=== PATIENT | female | born 1980 | race Caucasian/White ===

== ENCOUNTER 2017-06-05 14:11 | Emergency (ER) | payer OTHER ==
[2017-06-05 14:25] VITALS: BMI 22.4
[2017-06-05 14:29] VITALS: BP 155/93
[2017-06-05 15:12] LABS: BASOPHILS # (AUTO) 0.1 X10^3/uL (0.0-0.1); BASOPHILS % (AUTO) 0.7 % (0.2-1.0); EOSINOPHILS # (AUTO) 0.1 x10^3/uL (0.0-0.2); EOSINOPHILS % (AUTO) 1.1 % (0.9-2.9); HEMATOCRIT 41.8 % (36.0-47.0); HEMOGLOBIN 13.9 g/dL (12.0-16.0); LYMPHOCYTES # (AUTO) 1.5 X10^3/uL (1.3-2.9); LYMPHOCYTES % (AUTO) 16.2 % (21.0-51.0); MEAN CORPUSCULAR HEMOGLOBIN 25.8 pg (27.0-34.0); MEAN CORPUSCULAR HGB CONC 33.2 g/dL (33.0-35.0); MEAN CORPUSCULAR VOLUME 77.8 fL (80.0-100.0); MONOCYTES # (AUTO) 0.5 x10^3/uL (0.3-0.8); MONOCYTES % (AUTO) 5.3 % (0.0-13.0); NEUTROPHILS # (AUTO) 7.3 x10^3/uL (2.2-4.8); NEUTROPHILS % (AUTO) 76.7 % (42.0-75.0); PLATELET COUNT 316 X10^3/uL (150.0-450.0); RED BLOOD COUNT 5.37 X10^6/uL (3.5-5.4); RED CELL DISTRIBUTION WIDTH 16.1 % (11.6-16.5); WHITE BLOOD COUNT 9.5 X10^3/uL (3.6-10.0)
[2017-06-05 15:27] LABS: HYPOCHROMASIA SLIGHT; MICROCYTOSIS SLIGHT; PLATELET MORPHOLOGY COMMENT NORMAL (NORMAL)
[2017-06-05 15:40] LABS: ALANINE AMINOTRANSFERASE 22 Units/L (12-78); ALBUMIN 3.5 g/dL (3.4-5.0); ALKALINE PHOSPHATASE 30 Units/L (46-116); ASPARTATE AMINO TRANSFERASE 19 Units/L (15-37); BLOOD UREA NITROGEN 14 mg/dL (7-18); CALCIUM 11.4 mg/dL (8.5-10.1); CARBON DIOXIDE 32.2 mmol/L (21-32); CHLORIDE 100 mmol/L (98-107); CREATININE 1.45 mg/dL (0.55-1.02); SODIUM 139 mmol/L (136-145); TOTAL PROTEIN 7.6 g/dL (6.4-8.2); eGFR BLACK RACES 53 (>60); eGFR NON BLACK RACES 44 (>60)
[2017-06-05 15:55] LABS: BILIRUBIN,URINE NEGATIVE (NEGATIVE); BLOOD/HEMOGLOBIN,URINE NEGATIVE (NEGATIVE); GLUCOSE, URINE NEGATIVE (NEGATIVE); KETONES,URINE NEGATIVE (NEGATIVE); LEUKOCYTE ESTERASE ,URINE 1+ (NEGATIVE); NITRITES,URINE NEGATIVE (NEGATIVE); PROTEIN,URINE NEGATIVE (NEGATIVE); UROBILINOGEN,URINE NORMAL (NORMAL)
[2017-06-05 15:56] LABS: APPEARANCE,URINE CLOUDY (CLEAR); BACTERIA,URINE TRACE /HPF (NEGATIVE); COLOR,URINE YELLOW (YELLOW); RBC,URINE 0-2 /HPF (NEGATIVE); SQUAMOUS EPITHELIAL CELL,UR RARE /HPF (NEGATIVE)
--- NOTE | 2017-06-05 15:59 | DR.SEIZA ---
HPI - Time Seen Time seen: 15:50 - Primary Care Physician Primary Care Physician: QUENTIN PALMA - HPI Comment HPI Comment: HISTORY SEIZURE DISODER. ON DILANTIN. PATIENT SAID SHE IS NOT COMPLAINT WITH MEDS. - Complaints Chief Complaint Doctors Comments: SEIZURE, LACERATION INNER UPPER LIP. Chief Complaint:: SEIZURE ACTIVE Self Treatment fo Chief Complaint: CALLED EMS. PT STATES " I TOOK TWO BOXES OF OTC COUGH AND COLD HBP. BYSTANDER STATED SHE TOOK 4 BOXES OF THE OTC MEDS." - Reviewed Nurses Notes Reviewed: Yes - Source History Provided: Patient - Mode of Arrival Mode of Arrival: EMS - Timing Onset of Chief Complaint: 06/05/17 - Duration Since Onset: Since Onset Duration: Hours - Quality Quality: Tonic-clonic - Location Location: Generalized - Context Prior to Seizure:: Normal During Seizure: LOC Immediately After Seizure: Confusion, Headache History of:: Seizure Disorder Medication Compliance: Yes - Associated Signs and Symptoms Associated Signs and Symptoms:: Headache PMH - PMH Past Medical History: Yes Past Medical History: Anxiety, Depression, Seizures Past Surgical History: Yes Surgical History: Weight Loss Surgery - Family History History of Family Medical Conditions: Yes Family Medical History: Hypertension - Social History Does patient currently use any type of tobacco product: Yes Have you used tobacco products in the last 12 months: Yes Type of Tobacco Use: Cigarettes How many years tobacco product used: 15 Does any household member use tobacco: No Alcohol Use: None Do you use any recreational Drugs:: Yes (rx) Lives With: Family Lives Where: Home - infectious screening In the last 2 months have you had wt loss of >10#?: NO Have you had fever, night sweats or hemotysis?: No Have you traveled outside the country in the last 6 months?: No Isolation: Standard ROS - Review of Systems Constitutional: Weakness, Fatigue. negative: Chills, Fever Eyes: Blurred Vision. negative: Eye Pain, Discharge ENTM: negative: Ear Pain, Nose Discharge, Nose Congestion, Throat Pain Respiratoy: negative: Moist Cough, Short of Breath, Wheezing, Hemoptysis Cardiovascular: negative: Chest Pain, Edema Gastrointestinal/Abdominal: Abdominal Pain, Diarrhea, Nausea, Vomiting. negative: Constipation Genitourinary: negative: Dysuria, Hematuria Neurological: Pre-existing Deficit, Seizure Musculoskeletal: Back Pain, Chest wall Hematologic/Lymphatic: Easy Bleeding, Easy Bruising Endocrine: Increased Thirst Unable to Obtain Due To: Altered mental status PE - Vital Signs Vitals: Temperature 98.2 F Pulse Rate [Right Brachial] 85 Pulse Rate 86 Respiratory Rate 20 Blood Pressure [Right Arm] 155/93 Blood Pressure [Left Arm] 138/96 Blood Pressure 154/88 O2 Sat by Pulse Oximetry 100 MDM - Additional Information Obtained Additional Information Obtained From: Family - Differential Diagnosis Seizure due to:: Closed Head Injury, CVA/TIA, Drug Ingestion, Hypoclacemia, Hypoglycemia, Hyponatremia, Mass lesion Course - Treatment Treatment: SEE ORDERS. IVCEREBYX IN ED WITH PO AUGMENTIN. - Education/Counseling Education/Counseling: Patient, Family, Education Educated On: Treatment, Diagnosis, Needs for Follow Up ROR - Labs Reviewed Laboratory Results Reviewed?: Yes Result Diagrams: 06/05/17 15:00 06/05/17 15:00 Laboratory: WBC 9.5 X10^3/uL (3.6-10.0) 06/05/17 15:00 RBC 5.37 X10^6/uL (3.5-5.4) 06/05/17 15:00 Hgb 13.9 g/dL (12.0-16.0) 06/05/17 15:00 Hct 41.8 % (36.0-47.0) 06/05/17 15:00 MCV 77.8 fL (80.0-100.0) L 06/05/17 15:00 MCH 25.8 pg (27.0-34.0) L 06/05/17 15:00 MCHC 33.2 g/dL (33.0-35.0) 06/05/17 15:00 RDW 16.1 % (11.6-16.5) 06/05/17 15:00 Plt Count 316 X10^3/uL (150.0-450.0) 06/05/17 15:00 Plt Count Comment Adequate (ADEQUATE) 06/05/17 15:00 MPV 8.0 fL (7.4-11.0) 06/05/17 15:00 Neut % 76.7 % (42.0-75.0) H 06/05/17 15:00 Lymph % 16.2 % (21.0-51.0) L 06/05/17 15:00 [place] % 5.3 % (0.0-13.0) 06/05/17 15:00 Eos % 1.1 % (0.9-2.9) 06/05/17 15:00 Baso % 0.7 % (0.2-1.0) 06/05/17 15:00 Neut # 7.3 x10^3/uL (2.2-4.8) H 06/05/17 15:00 Lymph # 1.5 X10^3/uL (1.3-2.9) 06/05/17 15:00 [place] # 0.5 x10^3/uL (0.3-0.8) 06/05/17 15:00 Eos # 0.1 x10^3/uL (0.0-0.2) 06/05/17 15:00 Baso # 0.1 X10^3/uL (0.0-0.1) 06/05/17 15:00 Absolute Nucleated RBC 0.0 /100WBC 06/05/17 15:00 Plt Morphology Comment Normal (NORMAL) 06/05/17 15:00 RBC Morphology Abnormal (NORMAL) A 06/05/17 15:00 Hypochromasia Slight A 06/05/17 15:00 Microcytosis Slight A 06/05/17 15:00 Sodium 139 mmol/L (136-145) 06/05/17 15:00 Corrected Sodium TNP 06/05/17 15:00 Potassium 3.8 mmol/L (3.5-5.1) 06/05/17 15:00 Chloride 100 mmol/L (98-107) 06/05/17 15:00 Carbon Dioxide 32.2 mmol/L (21-32) H 06/05/17 15:00 BUN 14 mg/dL (7-18) 06/05/17 15:00 Creatinine 1.45 mg/dL (0.55-1.02) H 06/05/17 15:00 Est GFR (MDRD) Af Amer 53 (>60) L 06/05/17 15:00 Est GFR (MDRD) Non-Af 44 (>60) L 06/05/17 15:00 Glucose 80 mg/dL (65-99) 06/05/17 15:00 Calcium 11.4 mg/dL (8.5-10.1) H 06/05/17 15:00 Corrected Calcium TNP 12/17/17 15:00 Total Bilirubin 0.20 mg/dL (0.2-1.0) 06/05/17 15:00 AST 19 Units/L (15-37) 06/05/17 15:00 ALT 22 Units/L (12-78) 06/05/17 15:00 Alkaline Phosphatase 30 Units/L (46-116) L 06/05/17 15:00 Total Protein 7.6 g/dL (6.4-8.2) 06/05/17 15:00 Albumin 3.5 g/dL (3.4-5.0) 06/05/17 15:00 Globulin 4.1 g/dL (2.5-4.5) 06/05/17 15:00 Albumin/Globulin Ratio 0.9 Ratio (1.1-2.1) L 06/05/17 15:00 Specimen Type Clean catch urine 06/05/17 15:38 Urine Color Yellow (YELLOW) 06/05/17 15:38 Urine Appearance Cloudy (CLEAR) 06/05/17 15:38 Urine pH 7.0 (5.0 - 8.0) 06/05/17 15:38 Ur Specific [place] 1.010 (1.000-1.030) 06/05/17 15:38 Urine Protein Negative (NEGATIVE) 06/05/17 15:38 Urine Glucose (UA) Negative (NEGATIVE) 06/05/17 15:38 Urine Ketones Negative (NEGATIVE) 06/05/17 15:38 Urine Occult Blood Negative (NEGATIVE) 06/05/17 15:38 Urine Nitrite Negative (NEGATIVE) 06/05/17 15:38 Urine Bilirubin Negative (NEGATIVE) 06/05/17 15:38 Urine Urobilinogen Normal (NORMAL) 06/05/17 15:38 Ur Leukocyte Esterase 1+ (NEGATIVE) 06/05/17 15:38 Urine RBC 0-2 /HPF (NEGATIVE) 06/05/17 15:38 Urine WBC 0-2 /HPF (NEGATIVE) 06/05/17 15:38 Ur Squamous Epith Cells Rare /HPF (NEGATIVE) 06/05/17 15:38 Urine Bacteria Trace /HPF (NEGATIVE) 06/05/17 15:38 Ur Culture Indicated? No/not indicated 06/05/17 15:38 Urine Opiates Screen Negative (NEG=<300) 06/05/17 15:38 Urine Methadone Screen Negative (NEG=<300) 06/05/17 15:38 Ur Barbiturates Screen Negative (NEG=<200) 06/05/17 15:38 Phenytoin 1.8 ug/mL (10-20) L 06/05/17 15:00 Ur Phencyclidine Scrn Positive (NEG=<25) A 12 15:38 Ur Amphetamines Screen Negative (NEG=<1000) 06/05/17 15:38 U Benzodiazepines Scrn Negative (NEG=<200) 06/05/17 15:38 Urine Cocaine Screen Negative (NEG=<300) 06/05/17 15:38 U Marijuana (THC) Screen Negative (NEG=<50) 06/05/17 15:38 - XRAY XRAY Interpreted by: Radiologist XRAY Findings: REPORT DISCUSS WITH PATIENT. - Diagnosis Discharge Problem: Seizure disorder, Laceration of intraoral surface of lip - Discharge Plan Disposition: HOME, SELF-CARE Condition: Stable Prescriptions: Amoxicillin/Potassium Clav [Augmentin 875-125 Tablet] 1 tab PO Q12H #20 tab Phenytoin Sodium Ext Rel [Dilantin Cap 100 mg Ext Rel] 300 mg PO HS #90 cap - Follow ups/Referrals Follow ups/Referrals: NFD,None [Primary Care Provider] - 3 days - Instructions Instructions: Mouth Laceration, [id number], Seizure, Adult, [id number], Hematoma Additional Instructions: RETURN TO ED IF WORSE.
--- NOTE | 2017-06-05 16:19 | CT ---
HISTORY: Possible overdose, seizure, head injury Study: CT head without contrast Comparison: December 11, 2015 Technique: Multiple axial, coronal, and sagittal CT images of the head were reviewed without contrast . Findings: There is no mass, hemorrhage, midline shift, extra-axial fluid collection. The ventricles are symmetr ic in size and configuration. There are no findings to suggest an acute or subacute infarct. A right frontal scalp hematoma is noted without underlying calvarial fracture. IMPRESSION: Soft tissue injury without acute intracranial process. Reported By:
[2017-06-05] MEDS ORDERED: TORADOL 30 MG VIAL IVP ONE (16:28)
[2017-06-05] MEDS ORDERED: CEREBYX INJ IVP ONE (16:30)
[2017-06-05] MEDS ORDERED: NS 100 ML IV 100 ML IV ONE (16:45)
[2017-06-05] MEDS ORDERED: TORADOL 30 MG VIAL ONE (16:45)
[2017-06-05] MEDS ORDERED: CEREBYX INJ ONE (16:46)
--- NOTE | 2017-06-05 16:54 | CT ---
HISTORY: Possible overdose, head injury Study: CT facial bones without contrast Comparison: None Technique: Multiple axial, coronal, and sagittal CT images of the facial bones were reviewed without contrast. AEC was utilized. Findings: There is a right periorbital hematoma without underlying fracture identified. There is trace chronic maxillary sinus mucosal thickening. Nasal septal deviation and spurring to the left are noted. No james tructive osseous lesions are seen. IMPRESSION: No fracture. Reported By:
[2017-06-05] MEDS ORDERED: AUGMENTIN 500 MG/125 MG TAB PO ONE (17:20)
[2017-06-05] MEDS ORDERED: AMOXIL CAP 500 MG PO ONE (17:24)
== END 2017-06-05 18:04 | disposition home or self-care (01) ==
LOC: ER 14:11
DX: S01.511A Laceration without foreign body of lip, initial encounter (principal); G40.909 Epilepsy, unspecified, not intractable, without status epilepticus; W45.8XXA Other foreign body or object entering through skin, initial encounter; Y92.9 Unspecified place or not applicable
CPT/HCPCS: 36415; 70450; 70486; 80053; 80185; 80307; 81001; 85025; 96365; 96374; 96375; 99283; 99284; S0078; G0434; J1885

== ENCOUNTER 2017-06-24 19:05 | Emergency (ER) | payer OTHER ==
[2017-06-24 19:15] VITALS: BP 176/83; BMI 21.7
[2017-06-24] MEDS ORDERED: REQUIP PO ONE ×2 (19:49→19:54)
[2017-06-24] MEDS ORDERED: ZOFRAN TAB 4 MG ONE (19:50)
--- NOTE | 2017-06-24 19:50 | DR.GENAD ---
HPI - PCP Primary Care Physician: LOUIE - HPI Comment HPI Comment: OUT OF REQUIP FOR RESTLESS LEG. SUMTOM INCREASING WITHOUT MED. DENIES FEVER OR INJURY. - Complaint/Symptoms Chief Complaint Doctors Comments: RESLESS LEG INTERMITTENTLY, OUT MED. Chief Complaint:: "I HAVE RESTLESS LEG SYNDROME AND I AM OUT OF MY REQUIP. IT WORKS WELL FOR ME BUT IT MAKES ME NAUSEA. I JUST NEED SOME TO GET ME THROUGH THE WEEKEND TILL I CAN SEE ON TUESDAY." - Nurses notes reviewed Nurses Notes Review: Yes - Source History Provided: Patient - Mode of Arrival Mode of Arrival: Ambulatory - Timing Onset of Chief Complaint: 06/24/17 Came on: Gradually - Duration Duration: Intermittent Duration: Days - Severity Severity: Moderate PMH - PMH Past Medical History: Yes Past Medical History: Anxiety, Depression, Seizures Past Surgical History: Yes Surgical History: Weight Loss Surgery - Family History History of Family Medical Conditions: Yes Family Medical History: Hypertension - Social History Does patient currently use any type of tobacco product: No Have you used tobacco products in the last 12 months: Yes Type of Tobacco Use: Cigarettes Does any household member use tobacco: No Alcohol Use: None Do you use any recreational Drugs:: No (rx) Lives With: Family Lives Where: Home - infectious screening In the last 2 months have you had wt loss of >10#?: NO Have you had fever, night sweats or hemotysis?: No Have you traveled outside the country in the last 6 months?: No Isolation: Standard ROS - Review of Systems Constitutional: No Symptoms Reported Eyes: No Symptoms Reported ENTM: No Symptoms Reported Respiratoy: No Symptoms Reported Cardiovascular: No Symptoms Reported Gastrointestinal/Abdominal: No Symptoms Reported Genitourinary: No Symptoms Reported Neurological: Other (RESTLESS LEG INTERMITTENTLY.) Musculoskeletal: Muscle Pain Integumentary: No Symptoms Reported Hematologic/Lymphatic: No Symptoms Reported Endocrine: No Symptoms Reported All Other Systems: Reviewed and Negative PE - Vital Signs Vitals: Temperature 97 F Pulse Rate 100 Respiratory Rate 18 Blood Pressure [Right Arm] 155/93 Blood Pressure [Left Arm] 138/96 Blood Pressure 176/83 O2 Sat by Pulse Oximetry 96 - General Limitations: No Limitations General Appearance: Alert - Head Head Exam: Normal Inspection - Eyes Eye exam: Normal Appearance - ENT ENT Exam: Normal External Ear Exam External Ear Exam: Normal External Inspection TM/Canal Exam: Bilateral Normal Nose Exam: Normal Nose Exam Mouth Exam: Normal Inspection Throat Exam: Normal Inspection - Neck Neck Exam: Normal Inspection - Chest Chest Inspection: Symmetric Chest Wall Rise - Respiratory Respiratory Exam: Normal Lung Sounds Bilat Respiratory Exam: Bilateral Clear to Auscultation - Cardiovascular Cardiovascular Exam: Regular Rate, Normal Rhythm, Normal Heart Sounds - Abdominal Exam Abdominal Exam: Normal Bowel Sounds, Soft. negative: Tenderness - Extremities Extremities Exam: Normal Inspection - Back Back Exam: Normal Inspection - Neurologic Neurological Exam: Alert, Oriented X3, CN II-XII Intact, Normal Gait, Reflexes Normal. negative: Motor Sensory Deficit - Psychiatric Psychiatric Exam: Anxious - Skin Skin Exam: Normal Color MDM - Differential Diagnosis Differential Diagnosis: RESTLESS LEG. Course - Treatment Treatment: SEE ORDERS - Education/Counseling Education/Counseling: Patient, Family, Education Educated On: Diagnosis - Diagnosis Discharge Problem: Restless leg - Discharge Plan Disposition: 01 HOME, SELF-CARE Condition: Stable Prescriptions: Ropinirole HCl [REQUIP 0.25 MG *] 0.25 mg PO HS #7 tab - Follow ups/Referrals Follow ups/Referrals: NFD,None [Primary Care Provider] - 3 days - Instructions Instructions: Restless Legs Syndrome Additional Instructions: RETURN TO ED IF WORSE.
[2017-06-24] MEDS ORDERED: ZOFRAN TAB 4 MG PO ONE (19:55)
== END 2017-06-24 20:12 | disposition home or self-care (01) ==
LOC: ER 19:20
DX: G25.81 Restless legs syndrome (principal)
CPT/HCPCS: 99282; S0181

== ENCOUNTER 2017-10-22 21:43 | Emergency (ER) | payer OTHER ==
[2017-10-22 21:55] VITALS: BP 117/74; BMI 25.0
[2017-10-22 22:27] LABS: BASOPHILS # (AUTO) 0.1 X10^3/uL (0.0-0.1); BASOPHILS % (AUTO) 0.7 % (0.2-1.0); EOSINOPHILS # (AUTO) 0.1 x10^3/uL (0.0-0.2); EOSINOPHILS % (AUTO) 0.7 % (0.9-2.9); HEMATOCRIT 36.4 % (36.0-47.0); HEMOGLOBIN 11.8 g/dL (12.0-16.0); LYMPHOCYTES # (AUTO) 2.5 X10^3/uL (1.3-2.9); LYMPHOCYTES % (AUTO) 18.6 % (21.0-51.0); MEAN CORPUSCULAR HEMOGLOBIN 23.9 pg (27.0-34.0); MEAN CORPUSCULAR HGB CONC 32.6 g/dL (33.0-35.0); MEAN CORPUSCULAR VOLUME 73.5 fL (80.0-100.0); MEAN PLATELET VOLUME 7.1 fL (7.4-11.0); MONOCYTES # (AUTO) 1.1 x10^3/uL (0.3-0.8); NEUTROPHILS # (AUTO) 9.5 x10^3/uL (2.2-4.8); PLATELET COUNT 499 X10^3/uL (150.0-450.0); RED BLOOD COUNT 4.95 X10^6/uL (3.5-5.4); RED CELL DISTRIBUTION WIDTH 17.7 % (11.6-16.5); WHITE BLOOD COUNT 13.2 X10^3/uL (3.6-10.0)
[2017-10-22 22:40] LABS: BLOOD UREA NITROGEN 14 mg/dL (7-18); CARBON DIOXIDE 34.1 mmol/L (21-32); CHLORIDE 98 mmol/L (98-107); CREATININE 1.88 mg/dL (0.55-1.02); SODIUM 137 mmol/L (136-145); eGFR BLACK RACES 39 (>60); eGFR NON BLACK RACES 32 (>60)
[2017-10-22 22:44] LABS: ALANINE AMINOTRANSFERASE 23 Units/L (12-78); ALBUMIN 3.1 g/dL (3.4-5.0); ALKALINE PHOSPHATASE 27 Units/L (46-116); ASPARTATE AMINO TRANSFERASE 17 Units/L (15-37); BLOOD ALCOHOL < 3 mg/dL (0-19.9); COR CA(FOR HYPOALB) 14.4 mg/dL (8.5-10.1); TOTAL PROTEIN 7.5 g/dL (6.4-8.2)
[2017-10-22 22:47] LABS: SALICYLATE < 2.8 mg/dL (2.8-20)
[2017-10-22 22:48] LABS: CALCIUM 13.7 mg/dL (8.5-10.1)
[2017-10-22 22:51] LABS: HYPOCHROMASIA SLIGHT; PLATELET MORPHOLOGY COMMENT NORMAL (NORMAL)
[2017-10-22 23:13] LABS: CKMB % 4.9 % (<4); CREATINE KINASE 79 Units/L (26-192); CREATINE KINASE MB 3.9 ng/mL (0-4.0); TROPONIN I < 0.02 ng/mL (0-1.5)
[2017-10-22] MEDS ORDERED: NS 1000 ML 1,000 ML IV ONE (23:21)
--- NOTE | 2017-10-22 23:30 | DR.GENAD ---
HPI - PCP Primary Care Physician: palma - Complaint/Symptoms Chief Complaint Doctors Comments: Patient states she was feeling like she was going to have a seizure and got scared she may have a seizure and took medicines to help her relax. States she took Cough and Cold HBP because it had medicine like benadryl to help her relax but she took to much of the medicines. States she has a history or seizures and took Dilantin in the past but stopped taking it with her last seizure about 3-4 months ago. State she drinks a lot of milk and sometimes she drinks a gallon a day but mainly 1/2 gallon day. States she eats a lot of Tums daily like candy. She denies dysuria or hematuria. Chief Complaint:: took alarge amount of otc cough and cold medication - Nurses notes reviewed Nurses Notes Review: Yes - Source History Provided: Patient - Mode of Arrival Mode of Arrival: Ambulatory - Timing Onset of Chief Complaint: 10/22/17 Came on: Gradually - Duration Duration: Constant How lon Duration: Days - Severity Severity: Moderate - Modifying Factors Worsens:: nothing Improves:: nothing PMH - PMH Past Medical History: Yes Past Medical History: Anxiety, Depression, Seizures Past Surgical History: Yes Surgical History: Weight Loss Surgery - Family History History of Family Medical Conditions: Yes Family Medical History: Hypertension - Social History Does patient currently use any type of tobacco product: No Have you used tobacco products in the last 12 months: No Type of Tobacco Use: None Does any household member use tobacco: No Alcohol Use: None Do you use any recreational Drugs:: No (rx) Lives With: Family Lives Where: Home - infectious screening In the last 2 months have you had wt loss of >10#?: NO Have you had fever, night sweats or hemotysis?: No Have you traveled outside the country in the last 6 months?: No Isolation: Standard ROS - Review of Systems Constitutional: No Symptoms Reported, Weakness. negative: See HPI, Chills, Diaphoresis, Fever, Malaise, Irritable, Fatigue, Loss of Appetite, Other Eyes: No Symptoms Reported. negative: See HPI, Eye Pain, Blurred Vision, Tearing, Discharge, Photophobia, Diplopia, Other ENTM: No Symptoms Reported Respiratoy: No Symptoms Reported. negative: See HPI, Productive Cough, Non- Productive Cough, Moist Cough, Dry Cough, Hacking Cough, Barking Cough, Brassy Cough, Orthopnea, Short of Breath, Stridor, Wheezing, Hemoptysis, Other Cardiovascular: No Symptoms Reported. negative: See HPI, Chest Pain, Edema, Palpitations, Syncope, Cyanosis, Skin Mottling, Other Gastrointestinal/Abdominal: No Symptoms Reported. negative: See HPI, Abdominal Pain, Constipation, Diarrhea, Nausea, Vomiting, Food Intolerance, Other Genitourinary: No Symptoms Reported. negative: See HPI, Discharge, Dysuria, Frequency, Hematuria, Pain, Bleeding, Other Neurological: No Symptoms Reported, Anxiety, Headache. negative: See HPI, Depressed, Emotional Problems, Numbness, Paresthesia, Pre-existing Deficit, Seizure, Tingling, Tremors, Weakness, Dizziness, Problems Walking, Speech Problem, Other Musculoskeletal: No Symptoms Reported. negative: See HPI, Back Pain, Gout, Joint Pain, Joint Swelling, Muscle Pain, Muscle Stiffness, Neck Pain, Right, Left, Neck, Chest wall, Rib(s), Back, Shoulder, Arm, Elbow, Forearm, Wrist, Hand , Pelvis, Hip, Leg, Knee, Ankle, Foot, Other Integumentary: No Symptoms Reported Hematologic/Lymphatic: No Symptoms Reported. negative: See HPI, Anemia, Blood Clots, Easy Bleeding, Easy Bruising, Swollen Glands, Lymphadenopathy, Other Endocrine: No Symptoms Reported Psychiatric: No Symptoms Reported. negative: See HPI, Anxiety, Depression, Hallucinations, Excessive crying, Suicidal, Other PE - Vital Signs Vitals: Temperature 98.7 F Pulse Rate 93 Respiratory Rate 18 Blood Pressure [Right Arm] 155/93 Blood Pressure [Left Arm] 138/96 Blood Pressure 117/74 O2 Sat by Pulse Oximetry 94 - General Limitations: No Limitations General Appearance: Alert, In No Apparent Distress - Head Head Exam: Normal Inspection, Atraumatic, Normocephalic - Eyes Eye exam: Normal Appearance, PERRL, EOMI. negative: Scleral Icterus, Conjunctival Injection, Nystagmus, Miosis, Mydrasis, Periorbital Swelling, Periorbital Tenderness, Other - ENT ENT Exam: Normal Exam, Normal Oropharynx, Normal External Ear Exam, Mucous Membranes Moist, TM's Normal Bilaterally External Ear Exam: Normal External Inspection TM/Canal Exam: Bilateral Normal Nose Exam: Normal Nose Exam Mouth Exam: Normal Inspection. negative: Drooling, Trismus, Lip Swelling, Tongue Elevation, Tongue Swelling, Laceration, Other Throat Exam: Normal Inspection. negative: Tonsillar Erythema, Tonsillomegaly, Tonsillar Exudate, R Peritonsillar Mass, L Peritonsillar Mass, Muffled Voice, Other - Neck Neck Exam: Normal Inspection, Full ROM, Trachea Midline. negative: Tenderness, Meningismus, Lymphadenopathy, Thyromegaly, Other - Chest Chest Inspection: Normal Inspection, Symmetric Chest Wall Rise. negative: Tenderness, Rash, Abscess, Other - Respiratory Respiratory Exam: Normal Lung Sounds Bilat Respiratory Exam: Bilateral Clear to Auscultation - Cardiovascular Cardiovascular Exam: Regular Rate, Normal Rhythm, Normal Heart Sounds - Abdominal Exam Abdominal Exam: Normal Inspection, Normal Bowel Sounds, Soft Abdominal Tenderness: negative: RUQ, RLQ, LUQ, LLQ, Epigastrium, Suprapubic, Diffuse, Mild, Moderate, Severe, Other - Extremities Extremities Exam: Normal Inspection, Full ROM, Normal Capillary Refill. negative: Tenderness, Edema, Joint Swelling, Calf Tenderness, Other - Back Back Exam: Normal Inspection, Full ROM. negative: Tenderness, (R) CVA Tenderness, (L) CVA Tenderness, Muscle Spasm, Paraspinal Tenderness, Vertebral Tenderness, Rashes, (R) Sciatic Notch Tenderness, (L) Sciatic Notch Tendern, (R ) Straight Leg Raise, (L) Straight Leg Raise, Other - Neurologic Neurological Exam: Alert, Oriented X3, CN II-XII Intact - Psychiatric Psychiatric Exam: Normal Affect - Skin Skin Exam: Warm, Dry, Intact, Normal Color Course - Reevaluation 1st: Improved - Education/Counseling Education/Counseling: Patient, Family, Counseling (Patient states she is doing fine; has been walking in the hallway; States she did not know you could take to much calcium. Will followup with Dr. Palma. States will stop Tums and milk and other calcium products.) Educated On: Treatment, Diagnosis, Needs for Follow Up ROR - Labs Reviewed Laboratory Results Reviewed?: Yes (All labs and x-ray results reviewed and discussed with patient) Result Diagrams: 10/22/17 22:19 10/22/17 22:19 Laboratory: WBC 13.2 X10^3/uL (3.6-10.0) H 10/22/17 22:19 RBC 4.95 X10^6/uL (3.5-5.4) 10/22/17 22:19 Hgb 11.8 g/dL (12.0-16.0) L 10/22/17 22:19 Hct 36.4 % (36.0-47.0) 10/22/17 22:19 MCV 73.5 fL (80.0-100.0) L 10/22/17 22:19 MCH 23.9 pg (27.0-34.0) L 10/22/17 22:19 MCHC 32.6 g/dL (33.0-35.0) L 10/22/17 22:19 RDW 17.7 % (11.6-16.5) H 10/22/17 22:19 Plt Count 499 X10^3/uL (150.0-450.0) H 10/22/17 22:19 Plt Count Comment Increased (ADEQUATE) A 10/22/17 22:19 MPV 7.1 fL (7.4-11.0) L 10/22/17 22:19 Neut % (Auto) 72.0 % (42.0-75.0) 10/22/17 22:19 Lymph % (Auto) 18.6 % (21.0-51.0) L 10/22/17 22:19 [place] % (Auto) 8.0 % (0.0-13.0) 10/22/17 22:19 Eos % (Auto) 0.7 % (0.9-2.9) L 10/22/17 22:19 Baso % (Auto) 0.7 % (0.2-1.0) 10/22/17 22:19 Neut # (Auto) 9.5 x10^3/uL (2.2-4.8) H 10/22/17 22:19 Lymph # (Auto) 2.5 X10^3/uL (1.3-2.9) 10/22/17 22:19 [place] # (Auto) 1.1 x10^3/uL (0.3-0.8) H 10/22/17 22:19 Eos # (Auto) 0.1 x10^3/uL (0.0-0.2) 10/22/17 22:19 Baso # (Auto) 0.1 X10^3/uL (0.0-0.1) 10/22/17 22:19 Absolute Nucleated RBC 0.0 /100WBC 10/22/17 22:19 Plt Morphology Comment Normal (NORMAL) 10/22/17 22:19 RBC Morphology Abnormal (NORMAL) A 10/22/17 22:19 Hypochromasia Slight A 10/22/17 22:19 Sodium 137 mmol/L (136-145) 10/22/17 22:19 Corrected Sodium TNP 10/22/17 22:19 Potassium 3.4 mmol/L (3.5-5.1) L 10/22/17 22:19 Chloride 98 mmol/L (98-107) 10/22/17 22:19 Carbon Dioxide 34.1 mmol/L (21-32) H 10/22/17 22:19 BUN 14 mg/dL (7-18) 10/22/17 22:19 Creatinine 1.88 mg/dL (0.55-1.02) H 10/22/17 22:19 Est GFR (MDRD) Af Amer 39 (>60) L 10/22/17 22:19 Est GFR (MDRD) Non-Af 32 (>60) L 10/22/17 22:19 Glucose 85 mg/dL (65-99) 10/22/17 22:19 Calcium 13.3 mg/dL (8.5-10.1) H* 10/23/17 02:20 Corrected Calcium 14.4 mg/dL (8.5-10.1) H 10/22/17 22:19 Phosphorus 6.4 mg/dL (2.6-4.7) H 10/22/17 22:19 Magnesium 1.3 mg/dL (1.7-2.9) L 10/22/17 22:19 Total Bilirubin 0.20 mg/dL (0.2-1.0) 10/22/17 22:19 AST 17 Units/L (15-37) 10/22/17 22:19 ALT 23 Units/L (12-78) 10/22/17 22:19 Alkaline Phosphatase 28 Units/L (46-116) L 10/22/17 22:19 Creatine Kinase 79 Units/L (26-192) 10/22/17 22:19 CK-MB (CK-2) 3.9 ng/mL (0-4.0) 10/22/17 22:19 CK/CKMB % Calc 4.9 % (<4) 10/22/17 22: Troponin I < 0.02 ng/mL (0-1.5) 10/22/17 22: Total Protein 7.5 g/dL (6.4-8.2) 10/22/17 22: Albumin 3.1 g/dL (3.4-5.0) L 10/22/17 22: Globulin 4.4 g/dL (2.5-4.5) 10/22/17 22: Albumin/Globulin Ratio 0.7 Ratio (1.1-2.1) L 10/22/17 22:19 Specimen Type Clean catch urine 10/23/17 00:11 Urine Color Yellow (YELLOW) 10/23/17 00:11 Urine Appearance Clear (CLEAR) 10/23/17 00:11 Urine pH 6.0 (5.0 - 8.0) 10/23/17 00:11 Ur Specific [place] 1.015 (1.000-1.030) 10/23/17 00:11 Urine Protein 1+ (NEGATIVE) 10/23/17 00:11 Urine Glucose (UA) Negative (NEGATIVE) 10/23/17 00:11 Urine Ketones Negative (NEGATIVE) 10/23/17 00:11 Urine Occult Blood Negative (NEGATIVE) 10/23/17 00:11 Urine Nitrite Negative (NEGATIVE) 10/23/17 00:11 Urine Bilirubin Negative (NEGATIVE) 10/23/17 00:11 Urine Urobilinogen Normal (NORMAL) 10/23/17 00:11 Ur Leukocyte Esterase 1+ (NEGATIVE) 10/23/17 00:11 Urine RBC 0-2 /HPF (NONE SEEN) 10/23/17 00:11 Urine WBC 3-5 /HPF (NONE SEEN) 10/23/17 00:11 Ur Squamous Epith Cells Few /HPF (NEGATIVE) 10/23/17 00:11 Urine Bacteria Trace /HPF (NEGATIVE) 10/23/17 00:11 Ur Culture Indicated? No/not indicated 10/23/17 00:11 Salicylates < 2.8 mg/dL (2.8-20) L 10/22/17 22:19 Urine Opiates Screen Negative (NEG=<300) 10/23/17 00:11 Urine Methadone Screen Negative (NEG=<300) 10/23/17 00:11 Acetaminophen 0.0 ug/mL (10-30) L 10/22/17 22:19 Ur Barbiturates Screen Negative (NEG=<200) 10/23/17 00:11 Ur Phencyclidine Scrn Positive (NEG=<25) A 10/23/17 00:11 Ur Amphetamines Screen Negative (NEG=<1000) 10/23/17 00:11 U Benzodiazepines Scrn Negative (NEG=<200) 10/23/17 00:11 Urine Cocaine Screen Negative (NEG=<300) 10/23/17 00:11 U Marijuana (THC) Screen Negative (NEG=<50) 10/23/17 00:11 Ethyl Alcohol mg/dL < 3 mg/dL (0-19.9) 10/22/17 22:19 - EKG Rate: 87 [place]: Normal Rhythm: NSR Block: None Hypertrophy: LVH ST: Nonsp - Diagnosis Discharge Problem: drug ingestion Cold and Cough HBP, hypercalcemia due Tums and Milk Ingestio, Seizure disorder - Discharge Plan Disposition: 01 HOME, SELF-CARE Condition: Stable - Follow ups/Referrals Follow ups/Referrals: NFD,None [Primary Care Provider] - 3 days QUENTIN PALMA [STAFF PHYSICIAN] - 3 days - Instructions Instructions: Hypercalcemia, Drug Overdose, Accidental Overdose
[2017-10-22 23:38] LABS: MAGNESIUM 1.3 mg/dL (1.7-2.9); PHOSPHORUS 6.4 mg/dL (2.6-4.7)
[2017-10-23] MEDS ORDERED: NS 1000 ML 1,000 ML ONE (00:01)
[2017-10-23 00:22] LABS: BILIRUBIN,URINE NEGATIVE (NEGATIVE); BLOOD/HEMOGLOBIN,URINE NEGATIVE (NEGATIVE); GLUCOSE, URINE NEGATIVE (NEGATIVE); KETONES,URINE NEGATIVE (NEGATIVE); LEUKOCYTE ESTERASE ,URINE 1+ (NEGATIVE); NITRITES,URINE NEGATIVE (NEGATIVE); PROTEIN,URINE 1+ (NEGATIVE); UROBILINOGEN,URINE NORMAL (NORMAL)
[2017-10-23] MEDS ORDERED: LASIX IVP STA (00:28)
[2017-10-23 00:34] LABS: APPEARANCE,URINE CLEAR (CLEAR); BACTERIA,URINE TRACE /HPF (NEGATIVE); COLOR,URINE YELLOW (YELLOW); RBC,URINE 0-2 /HPF (NONE SEEN); SQUAMOUS EPITHELIAL CELL,UR FEW /HPF (NEGATIVE)
[2017-10-23] MEDS ORDERED: LASIX ONE (03:14)
== END 2017-10-23 03:20 | disposition home or self-care (01) ==
LOC: ER 21:43
DX: G40.909 Epilepsy, unspecified, not intractable, without status epilepticus (principal); T50.901A Poisoning by unspecified drugs, medicaments and biological substances, accidental (unintentional), initial encounter; J00 Acute nasopharyngitis [common cold]; R05 Cough; E83.52 Hypercalcemia
CPT/HCPCS: 36415; 80053; 80307; 81001; 82310; 82550; 82553; 83735; 83970; 84075; 84100; 84484; 85025; 93005; 93010; 96365; 96367; 96374; 99283; 99284; G0434; G6038; G6039; G6040; J1940